=== PATIENT | female | born 2000 | race Caucasian/White ===

== ENCOUNTER 2018-08-07 14:11 | Emergency (ER) | payer OTHER ==
--- NOTE | 2018-08-07 15:00 | UC ---
Abdominal Pain Female HPI - HPI Summary HPI Summary: This patient is a 18 year old female presenting to [facility] accompanied by mother with a chief complaint of abd pain since approx. 1345. Patient states she was in a soccer game when she was hit in the abdomen. She states she initially felt fine and went back in the game, but every time she was cee, the pain intensified. The pain is does not radiate. The pain is rated 3/10 in severity currently. Symptoms aggravated by nothing. Symptoms alleviated by nothing Patient additionally reports mild nausea at onset. Patient denies vomiting - History of Current Complaint Chief Complaint: UCAbdominalPain Stated Complaint: FELL ABD PAIN Hx Obtained From: Patient Hx Last Menstrual Period: 07/24/18 Onset/Duration: Lasting Hours, Still Present Timing: Constant Severity Currently: Mild Pain Intensity: 3 Pain Scale Used: 0-10 Numeric Location: Diffuse Radiates: No Aggravating Factor(s): Other: - exertion Alleviating Factor(s): Nothing Associated Signs and Symptoms: Positive: Negative - vomiting, Other: - mild nausea at onset Allergies/Adverse Reactions: Allergies Allergy/AdvReac Type Severity Reaction Status Date / Time No Known Allergies Allergy Verified 08/07/18 14:28 Home Medications: Home Medications Norethindrone-E.estradiol-Iron [Blisovi 24 Fe Tablet] 1 tab PO DAILY 08/07/18 [ History Confirmed 08/07/18] Spironolactone 150 mg PO DAILY 08/07/18 [History Confirmed 08/07/18] PMH/Surg Hx/FS Hx/Imm Hx Previously Healthy: Yes Other Endocrine History: Negative: Diabetes Other Cardiovascular History: Negative: Hypertension - Surgical History Surgical History: None - Family History Known Family History: Negative: Hypertension - Social History Occupation: Student Lives: With Family Alcohol Use: None Substance Use Type: None Smoking Status (MU): Never Smoked Tobacco Review of Systems Constitutional: Negative - Fever Gastrointestinal: Negative - Vomiting, Abdominal Pain, Nausea All Other Systems Reviewed And Are Negative: Yes Physical Exam - Summary Physical Exam Summary: Appearance: Well-appearing, Well-nourished Skin: Warm, Dry, No rash Eyes: Normal, PERRL, EOMI, sclera anicteric ENT: Normal Neck: Supple, nontender Respiratory: Clear to auscultation Cardiovascular: S1, S2, no murmur, no rub, no gallop Abdomen: Soft, nontender, no organomegaly Bowel sounds: Present Musculoskeletal: Normal, Strength/ROM Intact, no edema, pulses symmetrical Neurological: Normal, A&Ox3, cranial nerves II-XII WNL, follows commands, gait not tested, sensation intact to pin and light touch Psychiatric: affect normal, behavior appropriate, dressed appropriately, judgment intact Triage Information Reviewed: Yes Vital Signs: Initial Vital Signs Temp 98.2 F 08/07/18 14:25 Pulse 64 08/07/18 14:25 Resp 12 08/07/18 14:25 BP 102/73 08/07/18 14:25 Pulse Ox 100 08/07/18 14:25 Diagnostics - Radiology Abd XR Xray Interpretation: No Acute Changes - Abd XR reveals, per radiologist, IMPRESSION: NO EVIDENCE FOR ACUTE FINDINGS. physician has reviewed this radiology report. Radiology Interpretation Completed By: Radiologist Abd Pain Female Course/Dx - Course Course Of Treatment: This patient is a 18 year old female presenting to [facility] accompanied by mother with a chief complaint of abd pain since approx. 1345. Patient states she was in a soccer game when she was hit in the abdomen. Abd XR reveals, per radiologist, IMPRESSION: NO EVIDENCE FOR ACUTE FINDINGS. physician has reviewed this radiology report. Urinalysis Obtained. Test results with no significant abnormalities except for mildly elevated protein in urine. Patient will be discharged with a dx of blunt abd injury and is advised to follow up with PCP if sx reoccur. The patient is agreeable with this plan. - Differential Dx/Diagnosis Provider Diagnoses: Blunt Abdominal Trauma, no evidence for more severe injury Discharge - Sign-Out/Discharge Documenting (check all that apply): Patient Departure All imaging exams completed and their final reports reviewed: Yes - Discharge Plan Condition: Stable Disposition: HOME Patient Education Materials: Blunt Abdominal Injury (ED) Referrals: No Primary Care Phys,NOPCP [Primary Care Provider] - - Attestation Statements Document Initiated by Scribe: Yes Documenting Scribe: Adele Villar Provider For Whom Scribe is Documenting (Include Credential): Mat Nolasco MD Scribe Attestation: Adele Nunn scribed for Mat Nolasco MD on 08/07/18 at 1553.
--- NOTE | 2018-08-07 15:16 | RAD ---
INDICATION: Abdominal pain, blunt trauma. COMPARISON: There are no relevant prior studies available for comparison. TECHNIQUE: Supine and upright views of the abdomen were obtained. FINDINGS: The small bowel and colon appear nondistended. No free intraperitoneal air is seen. There is a moderate amount retained stool. No abnormal calcifications are seen. No fracture is seen. IMPRESSION: NO EVIDENCE FOR ACUTE FINDING.
[2018-08-08 14:00] LABS: ABS Basophils 0.1 10^3/ul (0-0.2); ABS Eosinophils 0 10^3/ul (0-0.6); ABS Lymphocytes 1.3 10^3/ul (1.0-4.8); ABS Monocytes 0.5 10^3/ul (0-0.8); ABS Neutrophils 8.6 10^3/ul (1.5-7.7); ABS Nucleated RBC 0.1 10^3/ul; Eosinophil % 0.1 % (0-6); Hematocrit 42 % (35-47); Hemoglobin 14.3 g/dl (12.0-16.0); Lymphocyte % 12.7 % (25-47); Mean Corpuscular HGB Conc 34 g/dl (31-36); Mean Corpuscular Hemoglobin 30 pg (27-31); Mean Corpuscular Volume 87 fL (80-97); Mean Platelet Volume 8.7 um3 (7.4-10.4); Nucleated Red Blood Cells % 0.6; Platelet Count 279 10^3/ul (150-450); Red Blood Count 4.84 10^6/ul (4.00-5.40); Red Cell Distribution Width 12 % (10.5-15); White Blood Count 10.5 10^3/ul (3.5-10.8)
--- NOTE | 2018-08-08 16:58 | UC ---
- Progress Note Progress Note: 08/08/2018 CBC:WNL, Lipase: WNL Uine Microalbumin elevate 107.8 Please call back Pt and advised of abnormal result and to f/u w/ her PP for further management. Thank you Sara Wheeler PA-C Discharge - Sign-Out/Discharge Documenting (check all that apply): Patient Departure - D/c home All imaging exams completed and their final reports reviewed: Yes - Discharge Plan Condition: Stable Disposition: HOME Patient Education Materials: Blunt Abdominal Injury (ED) Referrals: No Primary Care Phys,NOPCP [Primary Care Provider] - - Billing Disposition and Condition Condition: STABLE Disposition: Home
== END 2018-08-07 16:15 | disposition home or self-care (01) ==
LOC: UCEAST 14:11
DX: S39.91XA Unspecified injury of abdomen, initial encounter (principal); W18.09XA Striking against other object with subsequent fall, initial encounter; Y93.66 Activity, soccer; Y92.322 Soccer field as the place of occurrence of the external cause
CPT/HCPCS: 36415; 74019; 81003; 82043; 82570; 83690; 85025; 99201; G0463